=== PATIENT | female | born 1950 | race Caucasian/White ===

== ENCOUNTER → 2016-11-14 | Outpatient (CLI) | payer OTHER, MEDICARE ==
--- NOTE | 2016-11-14 11:35 | DIAGNOSTIC IMAGING REPORT ---
RIGHT SHOULDER MIN 2 VIEWS CLINICAL HISTORY: 66 years-old Female presenting with RIGHT SHOULDER PAIN. TECHNIQUE: Internal rotation and transscapular Y view of the right shoulder were obtained. COMPARISON: None. FINDINGS: Glenohumeral and acromioclavicular joints congruent. No acute fracture are radiopaque foreign body. Visualized portion of the right hemithorax normal. IMPRESSION: 1. No dislocation or acute osseous injury of the right shoulder. Electronically signed by: Kojo Graf M.D. 11/14/2016 11:33 AM Dictated Date/Time: 11/14/2016 11:32 AM
== END | disposition home or self-care (01) ==
LOC: C.RDSM 15:45
PROVIDERS: ATTEND Physician Assistant
DX: M25.511 Pain in right shoulder (principal)